=== PATIENT | female | born 1985 | race African-American/Black ===

== ENCOUNTER 2019-07-22 20:22 | Emergency (ER) | payer MEDICAID ==
[~2019-07-22] VITALS: Ht 165.1 cm; Wt 89.0 kg
[2019-07-22] MEDS ORDERED: BACITRACIN ZINC OINT UDPKT TOP ONE (21:30)
[2019-07-22] MEDS ORDERED: LIDOCAINE HCL/PF 1% 10 MG/ML 5ML VIAL IJ ONE (21:30)
[2019-07-22] MEDS ORDERED: IBUPROFEN 600MG TABLET PO STA (21:51)
[2019-07-22] MEDS ORDERED: TETANUS, DIPHTHERIA, PERTUSSIS VAC/PF 0.5ML (>7YR OLD) IM ONE (22:15)
[2019-07-22 23:09] VITALS: BP 128/90
== END 2019-07-22 23:14 | disposition home or self-care (01) ==
LOC: ER 20:22
DX: S61.411A Laceration without foreign body of right hand, initial encounter (principal); W25.XXXA Contact with sharp glass, initial encounter; Y93.89 Activity, other specified; Y92.89 Other specified places as the place of occurrence of the external cause; Y99.8 Other external cause status; J45.909 Unspecified asthma, uncomplicated
CPT/HCPCS: 12002; 73130; 81025; 90471; 90715; 99283; J3490

== ENCOUNTER 2021-09-14 14:19 | Emergency (ER) | payer MEDICAID ==
[~2021-09-14] VITALS: Ht 165.1 cm; Wt 90.0 kg
[2021-09-14] MEDS ORDERED: ACETAMINOPHEN 325MG TABLET PO PRN (14:45)
[2021-09-14 15:06] LABS: CLARITY URINE CLEAR (CLEAR); COLOR URINE YELLOW (YELLOW); KETONES URINE NEGATIVE (NEGATIVE); LEUKOCYTE ESTERASE URINE 2+ (NEGATIVE); NITRITE URINE NEGATIVE (NEGATIVE); OCCULT BLOOD URINE 1+ (NEGATIVE); PH URINE 6.5 (4.5-8.0); PROTEIN URINE NEGATIVE (NEGATIVE); SPECIFIC GRAVITY URINE 1.012 (1.005-1.030); UROBILINOGEN URINE 0.2 E.U./dL (0.2-1.0)
[2021-09-14 16:31] LABS: CHLORIDE 107 mEq/L (98-107)
[2021-09-14 16:34] LABS: BASOPHILS % 0.3 % (0.0-2.0); HEMATOCRIT. 34.2 % (36.0-48.0); HEMOGLOBIN. 11.4 g/dL (12.0-16.0); LYMPHOCYTES % 24.9 % (20.0-50.0); MEAN CORPUSCULAR VOLUME 87.1 fL (81.0-99.0); MEAN PLATELET VOLUME 8.6 fl (7.4-10.4); MONOCYTES % 4.6 % (2.0-8.0); NEUTROPHILS % 69.2 % (40.0-76.0); PLATELET 231 x1000/uL (130-400); RED BLOOD CELL COUNT 3.93 mill/uL (4.2-5.4); RED CELL DISTRIBUTION WIDTH 13.7 % (11.6-14.6)
[2021-09-14 16:55] LABS: B-HCG QUANTITATIVE 37984 mIU/mL (<3)
[2021-09-14] MEDS ORDERED: ONDA4TAB5 MT (18:54)
[2021-09-14] MEDS ORDERED: CEPH500C2 MT (18:54)
[2021-09-14] MEDS ORDERED: OMEP40CA20 MT (18:54)
[2021-09-14 19:10] VITALS: BP 116/77
== END 2021-09-14 19:12 | disposition home or self-care (01) ==
LOC: ER 14:36
DX: O20.0 Threatened abortion (principal); O23.11 Infections of bladder in pregnancy, first trimester; O09.521 Supervision of elderly multigravida, first trimester; Z3A.01 Less than 8 weeks gestation of pregnancy
CPT/HCPCS: 36415; 76801; 80053; 81003; 81025; 84702; 85025; 86850; 86900; 99284

== ENCOUNTER 2021-11-18 18:19 | Emergency (ER) | payer MEDICAID ==
[~2021-11-18] VITALS: Ht 167.6 cm; Wt 89.0 kg
[~2021-11-18 18:19] MED LIST: CEPH500C2 MT; OMEP40CA20 MT; ONDA4TAB5 MT
[2021-11-18 18:47] VITALS: BP 132/85
[2021-11-18] MEDS ORDERED: SODIUM CHLORIDE 0.9% 1,000 ML IV ONE (23:30)
[2021-11-18 23:44] LABS: HEMATOCRIT 29.5 % (36.0-48.0); HEMOGLOBIN 10.2 g/dL (12.0-16.0); MEAN CORPUSCULAR HEMOGLOBIN 29.7 pg (28.0-32.0); PLATELET 237 x1000/uL (130-400); RED BLOOD CELL COUNT 3.43 mill/uL (4.2-5.4); RED CELL DISTRIBUTION WIDTH 13.5 % (11.6-14.6)
[2021-11-18 23:52] LABS: CHLORIDE 104 mEq/L (98-107)
== END 2021-11-19 02:17 | disposition home or self-care (01) ==
LOC: ER 18:19
DX: O26.892 Other specified pregnancy related conditions, second trimester (principal); Z3A.17 17 weeks gestation of pregnancy; R19.7 Diarrhea, unspecified; O99.512 Diseases of the respiratory system complicating pregnancy, second trimester; F12.10 Cannabis abuse, uncomplicated
CPT/HCPCS: 36415; 80053; 83735; 85027; 96360; 99283; J7030

== ENCOUNTER 2021-12-28 21:25 | Emergency (ER) | payer MEDICAID ==
[~2021-12-28] VITALS: Ht 165.1 cm; Wt 103.0 kg
[2021-12-28 21:28] VITALS: BP 130/84
[2021-12-28 22:58] LABS: CLARITY URINE CLEAR (CLEAR); COLOR URINE YELLOW (YELLOW); KETONES URINE NEGATIVE (NEGATIVE); LEUKOCYTE ESTERASE URINE NEGATIVE (NEGATIVE); NITRITE URINE NEGATIVE (NEGATIVE); OCCULT BLOOD URINE NEGATIVE (NEGATIVE); PROTEIN URINE NEGATIVE (NEGATIVE); SPECIFIC GRAVITY URINE 1.014 (1.005-1.030); UROBILINOGEN URINE 0.2 E.U./dL (0.2-1.0)
[2021-12-28 23:30] LABS: BASOPHILS % 0.5 % (0.0-2.0); EOSINOPHILS % 2.3 % (0.0-5.0); HEMATOCRIT. 30.6 % (36.0-48.0); HEMOGLOBIN. 10.3 g/dL (12.0-16.0); LYMPHOCYTES % 23.8 % (20.0-50.0); MEAN CORPUSCULAR HEMOGLOBIN 29.8 pg (28.0-32.0); MEAN CORPUSCULAR VOLUME 88.4 fL (81.0-99.0); MONOCYTES % 6.4 % (2.0-8.0); PLATELET 243 x1000/uL (130-400); RED BLOOD CELL COUNT 3.46 mill/uL (4.2-5.4); RED CELL DISTRIBUTION WIDTH 13.7 % (11.6-14.6)
[2021-12-28 23:44] LABS: CHLORIDE 103 mEq/L (98-107)
[2021-12-29 00:07] LABS: B-HCG QUANTITATIVE 5855 mIU/mL (<3)
== END 2021-12-29 00:25 | disposition home or self-care (01) ==
LOC: ER 21:25
DX: O99.612 Diseases of the digestive system complicating pregnancy, second trimester (principal); Z3A.23 23 weeks gestation of pregnancy; K21.9 Gastro-esophageal reflux disease without esophagitis; F12.10 Cannabis abuse, uncomplicated
CPT/HCPCS: 36415; 76705; 76805; 80053; 81003; 84702; 85025; 93005; 99285

== ENCOUNTER 2022-02-26 11:34 | Observation (INO) | payer MEDICAID ==
[~2022-02-26] VITALS: Ht 165.1 cm; Wt 106.6 kg
[2022-02-26] MEDS ORDERED: METF-873 PO (12:36)
[2022-02-26 13:28] LABS: BASOPHILS % 0.3 % (0.0-2.0); EOSINOPHILS % 0.4 % (0.0-5.0); HEMATOCRIT. 31.6 % (36.0-48.0); LYMPHOCYTES % 18.8 % (20.0-50.0); MEAN CORPUSCULAR HEMOGLOBIN 30.3 pg (28.0-32.0); MEAN PLATELET VOLUME 8.9 fl (7.4-10.4); MONOCYTES % 5.6 % (2.0-8.0); NEUTROPHILS % 74.9 % (40.0-76.0); PLATELET 199 x1000/uL (130-400); RED BLOOD CELL COUNT 3.63 mill/uL (4.2-5.4); RED CELL DISTRIBUTION WIDTH 14.4 % (11.6-14.6)
[2022-02-26 13:32] LABS: CLARITY URINE CLEAR (CLEAR); COLOR URINE YELLOW (YELLOW); KETONES URINE NEGATIVE (NEGATIVE); LEUKOCYTE ESTERASE URINE TRACE (NEGATIVE); NITRITE URINE NEGATIVE (NEGATIVE); OCCULT BLOOD URINE NEGATIVE (NEGATIVE); PROTEIN URINE NEGATIVE (NEGATIVE); SPECIFIC GRAVITY URINE 1.014 (1.005-1.030); UROBILINOGEN URINE 0.2 E.U./dL (0.2-1.0)
[2022-02-26 13:40] LABS: CHLORIDE 109 mEq/L (98-107)
[2022-02-26 13:42] LABS: D-DIMER 2.54 mg/L FEU (<0.50); INR 0.9; PARTIAL THROMBOPLASTIN TIME 27.1 sec (23.4-31.0); PROTHROMBIN TIME 9.7 sec (9.6-11.0)
== END 2022-02-26 14:30 | disposition home or self-care (01) ==
LOC: 8 EST LDRP 11:34
PROVIDERS: ADMIT Obstetrics & Gynecology; ATTEND Obstetrics & Gynecology
DX: O36.8130 Decreased fetal movements, third trimester, not applicable or unspecified (principal); O26.893 Other specified pregnancy related conditions, third trimester; R03.0 Elevated blood-pressure reading, without diagnosis of hypertension; O24.415 Gestational diabetes mellitus in pregnancy, controlled by oral hypoglycemic drugs; Z3A.30 30 weeks gestation of pregnancy; Z79.84 Long term (current) use of oral hypoglycemic drugs
CPT/HCPCS: 36415; 59025; 76805; 76818; 80053; 81003; 84550; 85025; 85379; 85384; 85610; 85730; G0378; 99281; G0379